=== PATIENT | male | born 2000 | race Caucasian/White ===

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

== ENCOUNTER 2022-04-26 21:43 | Emergency (ER) | payer MEDICAID ==
[~2022-04-26] VITALS: Ht 190.5 cm; Wt 90.6 kg
[2022-04-27] MEDS ORDERED: AMOX-277 PO (01:25)
[2022-04-27 02:47] VITALS: BP 122/69
== END 2022-04-27 01:58 | disposition home or self-care (01) ==
LOC: ER 21:43
DX: J03.90 Acute tonsillitis, unspecified (principal); Z20.822 Contact with and (suspected) exposure to COVID-19
CPT/HCPCS: 36415; 87426

== ENCOUNTER → 2022-10-11 | Emergency (ER) | payer MEDICAID ==
[~2022-10-11] MED LIST: AMOX875T4 PO
== END | disposition left against medical advice (07) ==
LOC: ER 19:49
DX: M54.2 Cervicalgia (principal); Z53.21 Procedure and treatment not carried out due to patient leaving prior to being seen by health care provider

== ENCOUNTER 2024-10-31 12:52 | Emergency (ER) | payer MEDICAID ==
[~2024-10-31] VITALS: Ht 190.5 cm; Wt 86.5 kg
[2024-10-31 13:04] VITALS: BP 128/52; PULSE 72; RESP 20; TEMP 98.3; O2SAT 96
--- NOTE | 2024-10-31 13:06 | ED.PDOC ---
Musculoskeletal HPI Comments Jeremias: HPI: Poor Historian. 23-year-old male otherwise healthy presents to the emergency department for evaluation of left ankle pain injury that happened after he was playing basketball today. He landed and twisted his ankle and someone else also stepped on top of his left ankle. He has not been able to bear weight secondary to pain. Denies any other acute symptoms. Past Medical History: Denies any Past Surgical History: Denies any Vitals: temperature of 98.3F, pulse of 72, respiratory rate of 20, blood pressure of 128/52, and a SpO2 of 96%RA. REVIEW OF SYSTEMS: CONSTITUTIONAL: Denies acute: fever, diaphoresis, chills, generalized weakness. HEAD: Denies acute: headache, photophobia Eyes: Denies acute: Double vision, vision loss, eye pain, eye discharge. EARS: Denies acute: tinnitus, hearing loss, ear discharge, ear pain, THROAT: Denies acute: sore throat, swelling, difficulty swallowing , pain with swallowing, change in voice. NECK: Denies acute: neck pain, neck swelling, stiff neck. HEART: Denies acute : chest pain, palpitations, LUNGS: Denies acute: SOB, wheezing, cough, hemoptysis ABDOMEN: Denies acute: abdominal pain, Nausea, Vomiting, diarrhea, melena , hematemesis, hematochezia SKIN: Denies acute: rash, redness, lesions, itchiness. EXTREMITIES: Denies acute: calf pain, numbness, tingling, weakness, Denies acute: Low back pain. Neuro: Denies acute: focal neurological deficit, motor or sensory focal neurological deficit, tremors, seizure like activity, confusion, dizziness, change in mental status, loss of bowel or bladder function, cauda equina like symptoms. : Denies acute: dysuria, hematuria, flank pain, increase in urinary frequency. PSYCH: Denies acute: hallucination, suicidal ideation, homicidal ideation. PHYSICAL EXAM: General: ---mild-----acute distress, awake and alert. Head: normocephalic, atraumatic. Neck: supple, trachea is midline, no swelling. Throat: Normal phonation. Eyes:, no erythema, no purulent discharge, no proptosis, no icterus. Heart: regular rate, regular rhythm, no significant murmur appreciated. Lungs: no apparent respiratory distress, Able to speak in full sentences. No wheezing, no rhonchi, no crackles. No stridors Clear to auscultation bilaterally. Abdomen: non tender to palpation, non distended, soft, no guarding, no rebound, + bowel sounds. Neuro: Awake, Alert, oriented to name, self, situation, follows commands GCS=15. Speech is normal. Skin: no petechia, no purpura, no cyanosis, non-pale, not jaundice. Evaluation of the area of complaint: Left lower extremity no calf tenderness, no apparent deformity, patient is neurovascularly intact in the affected extremity. Motor and sensory are present. Pedal pulses palpable. Noted left lateral malleoli swelling and focal tenderness to palpation. Normal range of motion with the pain. Makes eye contact. moves all four extremities. Face: no apparent facial droop. Pedal pulses are palpable. ED COURSE: DISCLAIMER: This medical document was created using an electronic medical record system with voice recognition software and computerized dictation system. Although this document has been carefully reviewed, there might still be some phonetic and typographical errors. Occasional wrong-word or "sound-alike" substitutions may have occurred due to the inherent limitations of voice recognition software. These areas are purely typographical due to imperfections of the software programs and do not reflect any compromise in the patient's medical care. Please read the chart carefully and recognize, using context, where these substitutions have occurred. Chief Complaint: Lower Extremity Time Seen by MD: 13:03 Primary Care Provider: Dr Moore Reviewed Notes: Nurses Notes, Medications, Allergies Allergies: Coded Allergies: NO KNOWN ALLERGIES (Unverified , 01/07/18) Home Meds Active Scripts Amoxicillin & Pot Clavulanate (Amoxicillin/Potassium Cla) 875 Mg Tab, 1 TAB PO BID for 10 Days, #20 TAB 0 Refills Prov:GIFTY ABDUL 04/27/22 Information Source: Patient Location: Left Past Medical History PAST MEDICAL HISTORY: Denies Surgical History: Denies all surgeries Family History Family History: Reviewed,noncontributory to illness Social History Smoker: Non-Smoker Alcohol: Denies ETOH Use Drugs: Denies Drug Use Lives In: Home Was a procedure done? Was a procedure done?: No Differential Diagnosis EXT Differential Diagnosis: Cellulitis, CHF, Deep Vein Thrombosis, Compartment Syndrome, Fracture, Sprain, Dislocation, Laceration, DJD, Contusion, Strain, Septic, Neurovascular injury X-Ray, Labs, Meds, VS Vital Signs Date Time Temp Pulse Resp B/P (MAP) Pulse Ox O2 Delivery O2 Flow Rate FiO2 10/31/24 13:04 72 20 10/31/24 13:04 98.3 72 20 128/52 (77) 96 98.3 10/31/24 13:04 98.3 72 20 128/52 (77) 96 98.3 [place] [address] Ph: [phone] DIAGNOSTIC IMAGING Diagnostic Imaging Report : [id number] Signed PATIENT: TREVA MENDEZ ACCT: [id number] UNIT: [id number] : 2000 LOC: ER ROOM / BED: / AGE / SEX: 23 / M ADM STATUS: REG ER SERVICE 1303 ORDERING PHYSICIAN: VINNIE DIANE DO PROCEDURE(s): LANKL - L ANKLE 3 VIEW REASON: injury pain ORDER NUMBER(s): [id number], ACCESSION NUMBER(s): [id number] XY L ANKLE 3 VIEW, INDICATION: injury pain TECHNICAL DATA:Frontal , oblique and lateral views were obtained of the left ankle. COMPARISON: None FINDINGS: No fracture is identified. Joint spaces are maintained. Alignment is anatomic. Soft tissues are within normal limit. IMPRESSION: No acute fracture or dislocation of the left ankle. ATED BY: ALFRED MERA MD DICTATED DATE/TIME: 10/31/24 1352 SIGNED BY: ALFRED MERA MD SIGNED DATE/TIME: 10/31/24 1352 CC: Time of 1ST Reevaluation: 13:03 Reevaluation 1ST: Unchanged Patient Education/Counseling: Diagnosis, Treatment, Need For Follow Up Family Education/Counseling: No Family Present Comments Patient presented with the above HPI.---left ankle injury---workup was initiated. patient was found with the above mentioned diagnosis. the following medications were ordered: please refer to order lists of meds and tests obtained by myself Dr. Diane. Patient ED course and VS have been stabilized. Patient has been reassessed in the ED and remained in a stable condition. Pertinent incidental findings were discussed with the patient and/or family. Patient/family voices understanding and is agreeable with plan. Patient has been observed in the ED adequate length of time to insure improvement/stability. Escalation of care considered: Consideration of escalation to observation or admission Splint was ordered for the patient. Patient was DISCHARGED home in a stable condition. All the reports of any imaging studies that were ordered by myself were reviewed by myself. Departure 1 Departure Time of Disposition: 13:08 Impression: Primary Impression: Left ankle sprain Disposition: HOME / SELF CARE / HOMELESS Condition: Stable Additional Instructions: Additional instructions: You MUST follow-up with your primary care/family doctor in 1 to 2 days. If you are unable to see your primary care/family doctor, please return to our emergency room for re-assessment and re-evaluation in 1 to 2 days. Return to the emergency room here in our facility or to the nearest ER [facility] if your symptoms change or worsen. CONSULTATIONS: you MUST Follow-up for consultation as soon as possible with: -orthopedic doctor in 1-2 days. Please call for appointment. You MUST call the consultants office yourself to make an appointment. You may need to arrange that through your insurance and/or your primary/family doctor. If you are unable to see the [facility] consultant in 1 to 2 days, you must return to our emergency room (or any other ER of your choice) for re-assessment and re- evaluation. Adequate fluid hydration. Leg elevation, use [id number] pain medication as needed as instructed. Below is a copy of your radiological report for follow up: [address] [address] Ph: [phone] DIAGNOSTIC IMAGING Diagnostic Imaging Report : [id number] Signed PATIENT: TREVA MENDEZ ACCT: [id number] UNIT: [id number] : 2000 LOC: ER ROOM / BED: / AGE / SEX: 23 / M ADM STATUS: REG ER SERVICE 1303 ORDERING PHYSICIAN: VINNIE DIANE DO PROCEDURE(s): LANKL - L ANKLE 3 VIEW REASON: injury pain ORDER NUMBER(s): [id number], ACCESSION NUMBER(s): [id number] XY L ANKLE 3 VIEW, INDICATION: injury pain TECHNICAL DATA:Frontal , oblique and lateral views were obtained of the left ankle. COMPARISON: None FINDINGS: No fracture is identified. Joint spaces are maintained. Alignment is anatomic. Soft tissues are within normal limit. IMPRESSION: No acute fracture or dislocation of the left ankle. ATED BY: ALFRED MERA MD DICTATED DATE/TIME: 10/31/24 1352 SIGNED BY: ALFRED MERA MD SIGNED DATE/TIME: 10/31/24 1352 CC: Discharged With: Self Critical Care Note Critical Care Time?: No I personally scribed for VINNIE DIANE DO ([email or web address]) on 10/31/24 at 13:06. Electronically submitted by Jose Garrido ([email or web address]). I personally scribed for VINNIE DIANE DO ([email or web address]) on 10/31/24 at 21:22. Electronically submitted by Jose Garrido ([email or web address]). VINNIE DIANE DO Oct 31, 2024 13:06
--- NOTE | 2024-10-31 13:54 | DVH ---
XY L ANKLE 3 VIEW, INDICATION: injury pain TECHNICAL DATA:Frontal , oblique and lateral views were obtained of the left ankle. COMPARISON: None FINDINGS: No fracture is identified. Joint spaces are maintained. Alignment is anatomic. Soft tissues are wit hin normal limit. IMPRESSION: No acute fracture or dislocation of the left ankle.
== END 2024-10-31 14:36 | disposition home or self-care (01) ==
LOC: ER 12:52
DX: S93.492A Sprain of other ligament of left ankle, initial encounter (principal); X50.1XXA Overexertion from prolonged static or awkward postures, initial encounter; Y93.67 Activity, basketball; Y92.89 Other specified places as the place of occurrence of the external cause; Y99.8 Other external cause status
CPT/HCPCS: 29515; 73610